=== PATIENT | male | born 1950 | race Caucasian/White ===

== ENCOUNTER → 2018-09-28 09:25 | Outpatient (CLI) | payer MEDICARE, OTHER | END | disposition home or self-care (01) | LOC: D.RAD 09:25 | PROVIDERS: ATTEND Family Medicine | DX: R05 Cough (principal) ==

== ENCOUNTER → 2019-07-12 08:08 | Outpatient (CLI) | payer MEDICARE, OTHER ==
--- NOTE | 2019-07-14 14:04 | ST ---
PATIENT:HARDY CAMACHO MEDICAL RECORD: [id number] SEX: M LOCATION:[facility] ORDER #: ADMISSION DATE: 07/12/19 AGE OF PATIENT: 69 REFERRING PHYSICIAN: INTERPRETING PHYSICIAN: WILMA NIETO MD DATE OF SERVICE: 07/12/2019 PROCEDURE: Nuclear stress test. INDICATION: Angina, coronary artery disease, shortness of breath, hypertension, and hyperlipidemia. He was exercised on standard Deep protocol for 5 minutes achieving 85% max target heart rate response with 33 mCi of sestamibi injected at peak stress, 11 mCi used previously for rest images. FINDINGS: Gated SPECT reveals preserved ejection fraction at 64% with good wall motion and thickening and brightening throughout the lateral segment. SPECT imaging Cardiology was used as myocardial perfusion agent. There is reversibility inferiorly as well as laterally. The inferior perfusion defect is at the basal, mid, apical, inferior segments. The degree of reversibility is moderate. The amount of myocardium involved is moderate lateral perfusion defect is basal, mid, apical, lateral segments. The degree of reversibility is mild. The amount of myocardium involved is moderate. OVERALL IMPRESSION: This is an intermediate risk abnormal nuclear stress test. Reversible ischemia inferiorly and laterally, possibly suggestive of multivessel coronary artery disease. TRANSINT:[id number] Voice Confirmation ID: [id number] DOCUMENT ID: [id number] WILMA NIETO MD at 1404 CC: GERALDINE BEATTY MD [id number] DICTATION DATE: 07/13/19 1642 ECONOMIC DEVELOPMENT SPECIALIST: 07/14/19 0844 DEP CLI 07/12/19 [id number] [place] [address]
== END | disposition home or self-care (01) ==
LOC: D.HCCARDIO 08:08
PROVIDERS: ATTEND Internal Medicine Interventional Cardiology
DX: I25.10 Atherosclerotic heart disease of native coronary artery without angina pectoris (principal)

== ENCOUNTER 2019-07-26 07:45 | Outpatient (CLI) | payer MEDICARE, OTHER ==
[~2019-07-26] VITALS: Ht 185.4 cm; Wt 77.3 kg
--- NOTE | ~2019-07-26 | HEMODYNAMI ---
PATIENT:HARDY CAMACHO MEDICAL RECORD: [id number] : 52 LOCATION:[facility] ADMISSION DATE: 07/26/19 Generatedon:07/26/20199:08 Patient name: HARDY CAMACHO Patient #: [id number] SSN: [id number] : 1950 Date of study: 07/26/2019 Page: Of Hemodynamic Procedure Report Patient Data Patient Demographics Procedure consent was obtained First Name: HARDY Gender: Male Last Name: DOUG : 1950 [facility] Initial: J Age: 69 year(s) Patient #: [id number] Race: Unknown SSN: [id number] Additional ID: [id number] Contact details Address: [address] State: [place] City: [place] Zip code: [address] Past Medical History Allergies: No known allergies Admission Admission Data Admission Date: 07/26/2019 Admission Time: 7:45 Arrival Date: 07/26/2019 Arrival Time: 0:00 Admit Source: Other Insurance Payor: Medicaid [facility] #: [id number] Height (in.): 73.23 BSA: 2.01 (m2) Height (cm.): 186 BMI: 22.26 (kg/m2) Weight (lbs.): 169.76 Weight (kg.): 77 Lab Results Lab Result Date: 07/26/2019 Lab Result Time: 0:00 Biochemistry Name Units Result Min Max BUN mg/dl 16 --(---*)-- 7 18 Creatinine mg/dl 0.9 --(-*--)-- 0.6 1.3 eGFR ml/min 88.92363 -*(----)-- 90 120 NONAFRICAN CBC Name Units Result Min Max Hematocrit % 48.5 --(--*-)-- 42 54 Hemoglobin g/dl 16.2 --(--*-)-- 13.5 17.5 Procedure Procedure Types Cath Procedure Diagnostic Procedure [facility] w/Coronaries Sedation Charges Moderate Sedation up to 15 minutes PCI Procedure Coronary Stent Coronary Stent Initial Hemochron ACT Test Procedure Description Procedure Date Procedure Date: 07/26/2019 Procedure Start Time: 8:46 Procedure End Time: 9:07 Procedure Staff Name Function Morgan Martin MD Performing Physician Marion Aldridge RT Monitor Suman Lawson RN Nurse Sho Hough RT Scrub Procedure Data Cath Procedure Fluoroscopy Diagnostic fluoroscopy Total fluoroscopy Time: 5.2 time: 5.2 min min Diagnostic fluoroscopy Total fluoroscopy dose: 558 dose: 558 mGy mGy Contrast Material Contrast Material Type Amount (ml) Isovue 300 86 Entry Location Entry Primary Successful Side Size Upsize Upsize Entry Closure Perea ccessful Closure Location (Fr) 1 (Fr) 2 (Fr) Remarks Device Remarks Radial Right 6 Fr Mechanical artery Short Compression Estimated blood loss: 10 ml Diagnostic catheters Device Type Used For End Catheter Placement DIAGNOSTIC [place] 110cm 5 Procedure Fr catheter ([id number]) Procedure Complications No complications Procedure Medications Medication Administration Route Dosage 0.9% NaCl I.V. 100 ml/hr Oxygen etCO2 Nasal cannula 2 l/min Heparin Flush Bag added to field 2 bags (1000units/500ml NS) Lidocaine 2% added to field 20 Radial Cocktail added to field 1 syringe (Verapamil 2mg/Nitro 400mcg/Heparin 1500units) Radial Cocktail I.A. 1 syringe (Verapamil 2mg/Nitro 400mcg/Heparin 1500units) Versed I.V. 2 mg Fentanyl I.V. 100 mcg Heparin Bolus I.V. 4000 units Integrilin (Bolus I.V. 6.8 ml 2mg/ml) Integrilin (Bolus wasted 3.2 ml 2mg/ml) Plavix P.O. 600 mg Hemodynamics Rest BSA: 2.01 (m2) HGB: 16.2 (g/dl) O2 Consumption: Estimated: 217.5 (ml/min) O2 Con sumption indexed: Estimated:108.21 (ml/min/m) Heart Rate: 49 (bpm) Snapshots Pre Cath Intra NCS Post Cath Vital Signs Time Heart Resp SPO2 etCO2 NIBP (mmHg) Rhythm Pain Sedation Rate (ipm) (%) (mmHg) Status Level (bpm) 8:39:38 50 17 98 0 140/95(107) NSR 0 (11) 10(A) , No pain 8:43:48 61 14 96 38.9 143/88(99) NSR 0 (11) 10(A) , No pain 8:48:01 64 16 94 42.8 145/78(133) NSR 0 (11) 10(A) , No pain 8:52:13 72 22 94 40.5 124/82(97) NSR 0 (11) 9(A) , No pain 8:56:17 72 13 96 38.2 130/85(104) NSR 0 (11) 9(A) , No pain 9:00:27 65 24 97 36.6 128/73(107) NSR 0 (11) 10(A) , No pain 9:04:35 65 21 97 37.4 132/82(100) NSR 0 (11) 10(A) , No pain Medications Time Medication Route Dose Verified Delivered Reason Note s Effectiveness by by 8:41:52 0.9% NaCl I.V. 100 Suman Suman Per physician ml/hr Renny Lawson RN RN 8:42:01 Oxygen etCO2 2 l/min Suman Suman for low 02 sats Nasal Lorigan Renny cannula RN RN 8:42:11 Heparin Flush added 2 bags Suman Suman used for Bag to Lorlin Lawson procedure (1000units/500ml [facility] RN RN NS) 8:42:21 Lidocaine 2% added 20ml Suman Suman for local to vial Lorigan Lorigan anesthetic [facility] RN RN 8:43:49 Radial Cocktail added 1 Suman Suman used for (Verapamil to syringe Lorigan Lorigan procedure 2mg/Nitro field RN RN 400mcg/Heparin 1500units) 8:48:54 Radial Cocktail I.A. 1 Suman Morgan for (Verapamil syringe Renny Martin MD vasodilation 2mg/Nitro RN 400mcg/Heparin 1500units) 8:49:04 Versed I.V. 2 mg Suman Suman for sedation Renny Lawson RN RN 8:49:12 Fentanyl I.V. 100 mcg Suman Suman for sedation Renny Lawson RN RN 8:54:49 Heparin Bolus I.V. 4000 Suman Suman for units Lorigan Lorlin anticoagulation RN RN 8:55:06 Integrilin I.V. 6.8 ml Suman Suman for (Bolus 2mg/ml) Lorigan Lorigan antiplatelet RN RN therapy 8:55:16 Integrilin wasted 3.2 ml Suman Will to sharp's (Bolus 2mg/ml) Renny Lawson RN RN 9:01:08 Plavix P.O. 600 mg Suman Will for Renny Lawson antiplatelet RN RN therapy Procedure Log Time Note 8:26:43 Procedure Status Elective Heart Cath (OP). 8:26:46 Suman Lawson RN sent for patient. Start room use. 8:27:00 Time tracking: Regular hours (M-F 7:00 - 5:00) 8:27:07 Plan of Care:Hemodynamics will remain stable., Cardiac rhythm will remain stable., Comfort level will be maintained., Respiratory function will remain adequate., Patient/ family verbilizes understanding of procedure., Procedure tolerated without complication., Recovers from procedure without complications.. 8:28:34 Arrival Date: 07/26/2019 12:00:00 AM 8:28:56 Insurance Payor : Medicaid 8:29:04 Admit Source: Other 8:29:25 Patient Height : 73.23 inches 8:29:30 Patient Weight : 169.76 lbs 8:31:00 Patient received from Pre/Post Procedure Room to CCL 1 Alert and oriented. Tansferred to table in Supine position. 8:31:04 Signed procedure consent form obtained from patient. 8:31:06 Warm blankets applied, and jacy hugger turned on for patient comfort. 8:31:07 Correct patient and procedure confirmed by team. 8:31:09 ECG and BP/O2 sat monitors applied to patient. 8:37:40 Vital chart was started 8:37:41 Baseline sample Acquired. 8:37:43 Rhythm: sinus bradycardia 8:37:45 Full Disclosure recording started 8:39:50 H&P Date Dictated: 07/07/2019 Within 30 days and on chart., H&P Addendum completed by physician on day of procedure. (MUST COMPLETE FOR ALL OUTPATIENTS). 8:39:51 Pre-procedure instructions explained to patient. 8:39:51 Pre-op teaching completed and patient verbalized understanding. 8:39:52 Family in patients room. 8:39:53 Patient NPO since Midnight. 8:39:59 Patient allergic to No known allergies 8:40:01 Is the patient allergic to Iodine/contrast media? No. 8:40:08 Was the patient premedicated? No 8:40:09 Is patient on blood thinner?No 8:40:10 Patient diabetic? Yes. 8:40:11 If diabetic: On Metformin? No 8:40:18 Previous problem with sedation/anesthesia? No ? 8:40:19 Snore? Yes 8:40:20 Sleep apnea? No 8:40:22 Deviated septum? No 8:40:22 Opens mouth fully? Yes 8:40:23 Sticks out tongue? Yes 8:40:24 Airway obstruction? No ? 8:40:26 Dentures? No ? 8:40:28 Pre procedure: right dorsailis pedis pulse 1+ Palpable, but thready & weak; easily obliterated 8:40:33 Modified Leopoldo's test Ulnar < 7 seconds 8:40:35 Patient pain scale 0/10 ?. 8:40:43 IV patent on arrival in left forearm with 0.9% NaCl at O. 8:41:09 Stress Test: yes; abnormal MULTIVESSEL 8:41:52 0.9% NaCl 100 ml/hr I.V. was administered by Suman Lawson RN; Per physician; Verbal order read back and verified. 8:42:01 Oxygen 2 l/min etCO2 Nasal cannula was administered by Suman Lawson RN; for low 02 sats; Verbal order read back and verified. 8:42:11 Heparin Flush Bag (1000units/500ml NS) 2 bags added to field was administered by Suman Lawson RN; used for procedure; Verbal order read back and verified. 8:42:21 Lidocaine 2% 20ml vial added to field was administered by Suman Lawson RN; for local anesthetic; Verbal order read back and verified. 8:43:49 Radial Cocktail (Verapamil 2mg/Nitro 400mcg/Heparin 1500units) 1 syringe added to field was administered by Suman Lawson RN; used for procedure; Verbal order read back and verified. 8:44:40 Lab Result : Creatinine 0.9 mg/dl 8:44:40 Lab Result : BUN 16 mg/dl 8:44:40 Lab Result : eGFR NONAFRICAN 88.46844 ml/min 8:44:40 Lab Result : Hemoglobin 16.2 g/dl 8:44:40 Lab Result : Hematocrit 48.5 % 8:44:45 Right Radial & Right Groin area was prepped with chlora-prep and draped in sterile fashion 8:44:46 Alarms reviewed by R. N. 8:44:46 Sharps counted by scrub and verified by R.N. 8:44:49 --------ALL STOP TIME OUT------ 8:44:50 Final Timeout: patient, procedure, and site verified with staff and physician. All members of the team are in agreement. 8:44:51 Right Radial & Right Groin site verified by team. 8:44:54 Fire Safety Assessment: A--An alcohol-based skin anteseptic being used preoperatively., C--Open oxygen or nitrous oxide is being used., D--An ESU, laser, or fiber-optic light is being used. 8:44:57 Physical assessment completed. ASA score P 2 - A patient with mild systemic disease as per Morgan Martin MD. 8:45:00 2) 60-89 Mildly reduced kidney function, and other findings (as for stage 1) point to kidney disease. 8:45:04 Maximum allowable contrast dose (3.7 X eGFR X 0.75)247 ml. 8:45:06 Sedation plan: IV Moderate Sedation Medication:Versed, Fentanyl 8:45:12 Use device set Radial Dx or PCI 8:45:13 ACIST Syringe (12681) opened to sterile field. 8:45:14 Bag Decanter (2001S) opened to sterile field. 8:45:14 ACIST Hand Control (03422) opened to sterile field. 8:45:15 ACIST Manifold (46009) opened to sterile field. 8:45:15 Tegaderm 4 x 4 (1626W) opened to sterile field. 8:45:16 Medline Cath Pack ([id number]) opened to sterile field. 8:45:17 MBrace Wrist Support (079153650) opened to sterile field. 8:45:18 EMERALD Guide Wire (157-811) opened to sterile field. 8:45:19 SHEATH 6FR RAIN (4913267) opened to sterile field. 8:46:25 Procedure started. 8:46:44 Local anesthetic to right radial artery with Lidocaine 2% by Morgan Martin MD.INITIAL ACCESS ONLY 8:46:55 A 6 Fr Short sheath was inserted into the Right Radial artery 8:47:33 Zero performed for pressure channel P1 8:47:45 Zero performed for pressure channel P1 8:48:25 A DIAGNOSTIC [place] 110cm 5 Fr catheter (381143) was advanced over the wire and used for Procedure. 8:48:54 Radial Cocktail (Verapamil 2mg/Nitro 400mcg/Heparin 1500units) 1 syringe I.A. was administered by Morgan Martin MD; for vasodilation; Verbal order read back and verified. 8:49:04 Versed 2 mg I.V. was administered by Suman Lawson RN; for sedation; Verbal order read back and verified. 8:49:07 LV gram done using KILPATRICK 8:49:10 Injector settings: Ml/sec: 5, Volume: 15, 8:49:12 Fentanyl 100 mcg I.V. was administered by Suman Lawson RN; for sedation; Verbal order read back and verified. 8:49:16 EF : 55 % 8:50:13 LCA angiography performed. 8:50:44 RCA angiography performed. 8:50:45 Catheter exchanged over wire. 8:51:21 ACCDominant side:Right 8:51:24 Proceeding to intervention. 8:51:36 INFLATOR Merit BasixCompak (UG9988) opened to sterile field. 8:51:37 CHOICE PT Extra Support 182cm wire ([id number]) opened to sterile field. 8:51:37 GUIDE 6FR AR 2.0 catheter ([id number]) opened to sterile field. 8:51:46 6 Fr AR 2 guide catheter was inserted over the wire 8:53:24 Pre PCI Site: [place] mRCA has 90% stenosis. 8:53:32 CHOICE ES 182 wire advanced. 8:53:56 Wire advanced across lesion. 8:54:49 Heparin Bolus 4000 units I.V. was administered by Suman Lawson RN; for anticoagulation; Verbal order read back and verified. 8:54:53 Inflate balloon Inflation number: 1 A EUPHORA 3.0 x 15 Balloon ([id number]) was prepped and advanced across the Prox RCA , then inflated to 17 SYED for 0:00 (min:sec) . 8:55:06 Integrilin (Bolus 2mg/ml) 6.8 ml I.V. was administered by Suman Lawson RN; for antiplatelet therapy; Verbal order read back and verified. 8:55:16 Integrilin (Bolus 2mg/ml) 3.2 ml wasted was administered by Suman Lawson RN; to sharp's; Verbal order read back and verified. 8:55:36 Inflation number: 2 The EUPHORA 3.0 x 15 Balloon ([id number]) was reinflated across the Prox RCA , to 13 SYED for 0:00 (min:sec) . 8:56:23 Balloon removed over the wire. 8:57:20 Place stent Inflation Number: 1 A MARICHUY RX 3.0 x 18 stent ([id number]) was prepped and advanced across the Mid RCA . The stent was deployed at 13 SYED for 0:00 (min:sec) . 8:57:26 Stent catheter was removed intact over wire. 8:59:06 Place stent Inflation Number: 3 A MARICHUY RX 3.0 x 18 stent ([id number]) was prepped and advanced across the Prox RCA . The stent was deployed at 13 SYED for 0:00 (min:sec) . 8:59:17 Stent catheter was removed intact over wire. 9:00:26 Wire removed. 9:00:27 Guide catheter removed. 9:00:39 ZEPHYR REGULAR TR BAND (007403) opened to sterile field. 9:01:01 Procedure ended.(Physican Out) 9:01:08 Plavix 600 mg P.O. was administered by Suman Lawson RN; for antiplatelet therapy; Verbal order read back and verified. 9:02:10 Sheath removed intact; hemostasis achieved with Mechanical Compression to the Right Radial artery. 9:02:14 Fluoroscopy time 05.20 minutes. 9::18 Fluoroscopy dose: 558 mGy 9::18 Flurop Dose total: 558 9:02:25 Dose Area Product 92615 mGy/cm. 9:02:28 Contrast amount:Isovue 300 86ml. 9:02:30 Maximum allowable dose exceeded? No. 9:02:31 Sharpsteffany counted by scrub and verified by R.N. 9:02:37 Post-procedure physical assessment completed. ASA score P 2 - A patient with mild systemic disease as per Morgan Martin MD. 9:02:39 Post procedure rhythm: sinus rhythm 9:02:42 Estimated blood loss: 10 ml 9:02:44 Post procedure instruction explained to patient.Patient verbalizes understanding. 9:02:45 Patient needs reinforcement of post procedure teaching. 9:03:16 Procedure type changed to Cath procedure, Diagnostic procedure, LHC, [facility] w/Coronaries, Sedation Charges, Moderate Sedation up to 15 minutes, PCI procedure, Coronary Stent, Coronary Stent Initial, Hemochron ACT Test 9:03:51 Procedure and supply charges have been captured, reviewed, submitted and are correct. 9:03:55 ACT drawn and resulted at 282 seconds. (normal therapeutic range 180-240 seconds). 9:04:18 Procedure Complication : No complications 9:04:40 Vital chart was stopped 9:04:41 [facility] Findings: MVD- PCI performed (see procedure note) 9:04:45 Operative report dictated upon procedure completion. 9:04:46 See physician's report for complete and final results. 9:04:47 Report given to Pre/Post Procedure Room. 9:04:50 Patient transfered to Pre/Post Procedure Room with Bed. 9:04:54 ACC-PCI Only Patient was given prescriptions, or instructed by Morgan Martin MD to start/continue the following medications upon discharge: Plavix 9:05:57 [place] band inflated with 10cc of air. 9:07:25 Procedure ended. 9:07:25 Full Disclosure recording stopped 9:07:27 End room use (Document Last) 9:07:37 End room use (Document Last) 9:07:53 End room use (Document Last) Intervention Summary Intervention Notes Time ActionType Lesion and Equipment Used Action# Pressure Duration Attributes 8:54:53 Inflate Prox RCA EUPHORA 3.0 x 1 17 00:00 balloon 15 Balloon ([id number]) 8:55:36 Reinflate Prox RCA EUPHORA 3.0 x 2 13 00:00 balloon 15 Balloon ([id number]) 8:57:20 Place stent Mid RCA MARICHUY RX 3.0 x 1 13 00:00 18 stent ([id number]) 8:59:06 Place stent Prox RCA MARICHUY RX 3.0 x 3 13 00:00 18 stent ([id number]) Device Usage Item Name Manufacture Quantity Catalog Number Hospital Part Current M inimal Lot# / Charge Number Stock Stock Serial# Code ACIST Syringe Acist 1 76037 203129 818135 776853 2 0 (19590) Medical Systems Inc Bag Decanter Microtek 1 2001S 257235 75505 543526 5 (2001S) Medical Inc. ACIST Hand Acist 1 54413 265853 039880 686084 5 Control Medical (14777) Systems Inc ACIST Manifold Acist 1 99090 038634 387502 434172 5 (54342) Medical Systems Inc Tegaderm 4 x 4 3M 1 1626W 996160 402122 029725 5 (1626W) Medline Cath Medline 1 [id number] 120234 67208 610142 5 Pack ([id number]) MBrace Wrist Advanced 1 140-2960-00 105571 00774 519011 5 Support Vascular (029537073) Dynamics EMERALD Guide Cardinal 1 502-455 970127 181693 307933 5 Wire (502455) Health SHEATH 6FR Cardinal 1 3390578 779598 5831843 065450 5 RAIN (0021069) Health DIAGNOSTIC Terumo 1 40-5153 823334 258680 923086 5 [place] 110cm 5 Fr catheter (683945) INFLATOR Merit Merit 1 GN2788 291755 776404 135592 1 5 LogMeIn (SM8207) CHOICE PT [place]ary 1 [id number] 528302 961859 296912 5 Extra Support Scientific 182cm wire (4809552P6) GUIDE 6FR AR Medtronic 1 OK0AY92 395465 79986 776439 1 2.0 catheter (JG5CS46) EUPHORA 3.0 x Medtronic 1 [id number] 649052 701236 698186 5 [id number] 15 Balloon (AJJ6675Y) MARICHUY RX 3.0 x Medtronic 2 [id number] 496721 4791842 431593 5 [id number] 18 stent [id number] ([id number]) ZEPHYR REGULAR Cardinal 1 664969 683895 6712737 498150 5 [employer] (005587) Signature Audit [place] Stage Time Signature Unsigned Intra-Procedure 07/26/2019 Marion Oly 9:07:37 AM RT(R) Intra-Procedure 07/26/2019 Suman 9:07:53 AM Renny HAMMER Intra-Procedure 07/26/2019 Morgan Martin 9:08:06 AM [id number] [place] [address]
--- NOTE | ~2019-07-26 | OP ---
PATIENT NAME: HARDY CAMACHO MEDICAL RECORD: [id number] :52 LOCATION:D.CAT ADMISSION DATE: SURGEON: WILMA NIETO MD DATE OF OPERATION: 07/26/2019 PROCEDURES: 1. PTCA stent RCA. 2. Left heart catheterization. 3. Selective coronary angiography. 4. Left ventriculogram. INDICATION: Angina and coronary artery disease. DESCRIPTION OF PROCEDURE: After informed consent was obtained and after a detailed description of the risks, benefits as well as alternative therapies, the patient elected to proceed with angiogram and angioplasty. The right radial area was prepped and draped in normal sterile fashion. Right radial artery was cannulated via modified Seldinger technique with placement of 6-K[place] sheath. All catheters exchanged through this sheath. FINDINGS: Left ventriculogram was performed in standard 30-degree KILPATRICK view reveals good cardiac wall motion and ejection fraction estimated at 55% to 60%. SELECTIVE CORONARY ANGIOGRAPHY: 1. Left main is with no significant angiographic disease. 2. Left anterior descending has 95% stenosis of the LAD as well as the LAD diagonal. 3. Left circumflex has 90% to 95% stenosis in the mid vessel. 4. Right coronary has a very hazy 80% stenosis followed by a 90% stenosis. PTCA STENT OF THE RCA: The stents used were 3.0 x 18 mm [place] times 2. The result was 0% residual stenosis. OVERALL IMPRESSION: Successful percutaneous transluminal coronary angioplasty stent of the right coronary artery going from 90% initial stenosis to 0% residual. PLAN: PTCA stent of the left anterior descending, diagonal, and circumflex in the near future. TRANSINT:[id number] Voice Confirmation ID: [id number] DOCUMENT ID: [id number] WILMA NIETO MD CC: [id number] DICTATION DATE: 07/26/19 0904 EVENTS TRAFFIC CONTROLLER: 07/26/19 1151 [address] [facility] [address] [place] [address]
[2019-07-26] MEDS ORDERED: OMEPRAZOLE20 M1 PO (07:56)
[2019-07-26] MEDS ORDERED: LISINOPRIL20 MG PO (07:56)
[2019-07-26] MEDS ORDERED: ZOCOR20 MG PO (07:57)
[2019-07-26] MEDS ORDERED: JANUVIA100 MG PO (07:57)
[2019-07-26 08:06] VITALS: BP 131/80; Ht 185.4 cm; Wt 77.3 kg
[2019-07-26 08:23] LABS: BASOPHILS 0.3 % (0-2); EOSINOPHILS 2.6 % (0-7); HEMATOCRIT 48.5 % (42.0-54.0); HEMOGLOBIN 16.2 g/dL (13.5-17.5); IMMATURE GRANULOCYTES 0.3 % (0-5); LYMPHOCYTES 16.9 % (15-50); MCH 31.9 pg (26.0-34.0); MCHC 33.4 g/dL (31.0-37.0); MCV 95.5 fL (80.0-100.0); MEAN PLATELET VOLUME 10.6 fL (7.4-10.4); MONOCYTES 9.2 % (2-11); NEUTROPHILS 70.7 % (40-80); PLATELET COUNT 189 10x3/uL (130-400); RBC 5.08 10x6/uL (4.20-6.10); RDW 14.1 % (11.5-14.5); WBC 6.1 10x3/uL (4.8-10.8)
[2019-07-26 08:33] LABS: ALT (SGPT) 27 U/L (10-68); CALC OSMOLALITY 288 mosm/kg (275-300); CALCIUM 9.1 mg/dL (8.5-10.1); CARBON DIOXIDE 27.7 mmol/L (21.0-32.0); CHLORIDE - SERUM 107 mmol/L (98-107); CHOL - HDL RATIO 3.1 ratio (2.3-4.9); CHOLESTEROL, TOTAL 139 mg/dL (0-200); CREATININE - SERUM 0.9 mg/dL (0.6-1.3); GLUCOSE 155 mg/dL (74-106); HDL CHOLESTEROL 45 mg/dL (32-96); LDL CHOLESTEROL 82 mg/dL (0-100); LDL-HDL RATIO 1.8 ratio (1.5-3.5); POTASSIUM - SERUM 4.7 mmol/L (3.5-5.1); SODIUM 143 mmol/L (136-145); TRIGLYCERIDE 60 mg/dL (30-200); UREA NITROGEN 16 mg/dL (7-18); eGFR NON AFRICAN AMERICAN 89 mL/min (90-120)
--- NOTE | 2019-07-26 09:15 | NUR ---
REC'D TO ROOM 12 FROM VIOLIN TUTOR VIA STRETCHER. PT AWAKE, ANSWERS QUESTIONS APPROP. DENIES PAIN. MONITORS ESTAB AND ALARMS ON. Z BAND TO R WRIST C/D/I. AT BS. C/L IN REACH.
--- NOTE | 2019-07-26 09:30 | NUR ---
R ARM/HAND WARM, PALP PULSES, CAP REFILL BRISK, NO S/S OF BLEEDING OR HEMATOMA.
--- NOTE | 2019-07-26 10:00 | NUR ---
PT RESTING QUIETLY, VSS. R ARM/HAND WARM, Z BAND C/D/I, NO S/S BLEEDING OR HEMATOMA.
[2019-07-26] MEDS ORDERED: BAYER CHEWABLE81 MG PO (10:17)
[2019-07-26] MEDS ORDERED: PLAVIX75 MG PO (10:17)
--- NOTE | 2019-07-26 10:30 | NUR ---
PT AWAKENS EASILY, DENIES NEEDS. R Z BAND SITE C/D/I, NO S/S OF BLEEDING OR HEMATOMA. AT BS.
--- NOTE | 2019-07-26 10:59 | NUR ---
R WRIST SITE C/D/I, NO S/S OF BLEEDING OR HEMATOMA. PT DENIES NEEDS. AT BS.
--- NOTE | 2019-07-26 11:30 | NUR ---
HOB ELEVATED, PT TAKING SIPS, DENIES NAUSEA. R WRIST Z BAND C/D/I, NO S/S OF BLEEDING OR HEMATOMA. REMAINS AT BS.
--- NOTE | 2019-07-26 12:00 | NUR ---
DR. NIETO IN TO SEE PT. R SARAN SITE WNL.
--- NOTE | 2019-07-26 12:16 | NUR ---
PT SITTING UP IN BED. 2CC AIR REMOVED FROM Z BAND. PT INSTRUCTED ON S/S TO REPORT.
--- NOTE | 2019-07-26 12:32 | NUR ---
ANOTHER 2 CC AIR REMOVED FROM Z BAND, NO S/S OF BLEEDING OR HEMATOMA.
--- NOTE | 2019-07-26 12:42 | NUR ---
2 CC AIR REMOVED, SITE WITH OOZING NOTED, 1CC REPLACED WITH NO ADDITIONAL SIGNS OF BLEEDING - WILL CONT CLOSE MONITORING.
--- NOTE | 2019-07-26 12:55 | NUR ---
NO SIGN OF BLEEDING, 2 MORE CC AIR REMOVED.
--- NOTE | 2019-07-26 13:18 | NUR ---
L PIV D/C'D INTACT, DSG APPLIED. PT ALLOWED TO GET UP TO GET DRESSED, INSTRUCTED NOT TO USE R ARM - AT BS TO ASSIST.
--- NOTE | 2019-07-26 13:22 | NUR ---
Z BAND REMOVED, NO BLEEDING OR SWELLING NOTED. 2X2 AND TEGADERM DSG APPLIED. R WRIST IMMOBILIZER IN PLACE. DISCHARGE INSTRUCTIONS AND TEACHING DONE.
--- NOTE | 2019-07-26 13:35 | NUR ---
PT TO BR INDEPENDENTLY.
--- NOTE | 2019-07-26 13:40 | NUR ---
PT D/C'D VIA W/C WITH D/C PAPERS AND BELONGINGS. NO S/S OF DISTRESS. WRIST DSG C/D/I.
== END 2019-07-26 13:40 | disposition home or self-care (01) ==
LOC: D.CATH 07:45
PROVIDERS: ATTEND Internal Medicine Interventional Cardiology
DX: I25.119 Atherosclerotic heart disease of native coronary artery with unspecified angina pectoris (principal); R06.09 Other forms of dyspnea; I10 Essential (primary) hypertension; E78.5 Hyperlipidemia, unspecified
CPT/HCPCS: 93458; C9600

== ENCOUNTER 2019-07-29 07:28 | Outpatient (CLI) | payer MEDICARE, OTHER ==
[~2019-07-29] VITALS: Ht 185.4 cm; Wt 77.3 kg
--- NOTE | ~2019-07-29 | HEMODYNAMI ---
PATIENT:HARDY CAMACHO MEDICAL RECORD: [id number] : 52 LOCATION:[facility] ADMISSION DATE: 07/29/19 Generatedon:07/29/201910:06 Patient name: HARDY CAMACHO Patient #: [id number] SSN: [id number] : 1950 Date of study: 07/29/2019 Page: Of Hemodynamic Procedure Report Patient Data Patient Demographics Procedure consent was obtained First Name: HARDY Gender: Male Last Name: DOUG : 1950 [facility] Initial: J Age: 69 year(s) Patient #: [id number] Race: Unknown SSN: [id number] Additional ID: [id number] Contact details Address: [address] State: [place] City: [place] Zip code: [address] Past Medical History History of disease Date Diagnosis Comments CAD Allergies: No known allergies Admission Admission Data Admission Date: 07/29/2019 Admission Time: 7:28 Arrival Date: 07/29/2019 Arrival Time: 0:00 Height (in.): 72.83 BSA: 2 (m2) Height (cm.): 185 BMI: 22.5 (kg/m2) Weight (lbs.): 169.76 Weight (kg.): 77 Lab Results Lab Result Date: 07/29/2019 Lab Result Time: 0:00 Biochemistry Name Units Result Min Max BUN mg/dl 15 --(--*-)-- 7 18 Creatinine mg/dl 0.9 --(-*--)-- 0.6 1.3 eGFR ml/min 88.78621 -*(----)-- 90 120 NONAFRICAN CBC Name Units Result Min Max Hematocrit % 47 --(-*--)-- 42 54 Hemoglobin g/dl 15.9 --(--*-)-- 13.5 17.5 Procedure Procedure Types Cath Procedure Diagnostic Procedure Sedation Charges Moderate Sedation up to 30 minutes PCI Procedure Coronary Stent Coronary Stent Initial x2 Coronary Stent Additional Hemochron ACT Test Procedure Description Procedure Date Procedure Date: 07/29/2019 Procedure Start Time: 9:39 Procedure End Time: 10:02 Procedure Staff Name Function Morgan Martin MD Performing Physician Marion Aldridge RT Monitor Sho Hough RT Scrub Suman Lawson RN Nurse Additional PCI Information PCI indication: Staged PCI Procedure Data Cath Procedure Fluoroscopy Diagnostic fluoroscopy Total fluoroscopy Time: 0 time: 0 min min Diagnostic fluoroscopy Total fluoroscopy dose: 985 dose: 985 mGy mGy Contrast Material Contrast Material Type Amount (ml) Isovue 300 128 Entry Location Entry Primary Successful Side Size Upsize Upsize Entry Closure Succes sful Closure Location (Fr) 1 (Fr) 2 (Fr) Remarks Device Remarks Femoral Right 6 Fr Exoseal artery Short Estimated blood loss: 10 ml Procedure Complications No complications Procedure Medications Medication Administration Route Dosage 0.9% NaCl I.V. 100 ml/hr Oxygen etCO2 Nasal cannula 2 l/min Heparin Flush Bag added to field 2 bags (1000units/500ml NS) Lidocaine 2% added to field 20 Versed I.V. 2 mg Fentanyl I.V. 100 mcg Heparin Bolus I.V. 4000 units Versed I.V. 1 mg Hemodynamics Rest BSA: 2 (m2) HGB: 15.9 (g/dl) O2 Consumption: Estimated: 217.45 (ml/min) O2 Consu mption indexed: Estimated:108.72 (ml/min/m) Heart Rate: 51 (bpm) Snapshots Pre Cath Intra NCS Post Cath Vital Signs Time Heart Resp SPO2 etCO2 NIBP (mmHg) Rhythm Pain Sedation Rate (ipm) (%) (mmHg) Status Level (bpm) 9:26:03 51 16 99 27.7 165/101(135) NSR 0 (11) 10(A) , No pain 9:30:19 55 26 97 36.7 136/86(111) NSR 0 (11) 10(A) , No pain 9:34:31 55 19 95 39.7 133/84(102) NSR 0 (11) 10(A) , No pain 9:38:43 58 19 96 38.9 130/83(102) NSR 0 (11) 10(A) , No pain 9:42:49 69 16 90 38.2 150/101(119) NSR 0 (11) 10(A) , No pain 9:47:01 80 11 97 39.7 146/96(125) NSR 0 (11) 9(A) , No pain 9:51:15 77 18 98 38.9 163/90(128) NSR 0 (11) 9(A) , No pain 9:55:35 78 18 99 36 154/99(115) NSR 0 (11) 10(A) , No pain 9:59:49 77 12 99 40.5 172/103(138) NSR 0 (11) 9(A) , No pain Medications Time Medication Route Dose Verified Delivered Reason Notes Effectiveness by by 9:30:08 0.9% NaCl I.V. 100 Suman Suman Per physician ml/hr Renny Lawson RN RN 9:30:17 Oxygen etCO2 2 Suman Suman for low 02 sats Nasal l/min Renny Lawson cannula RN RN 9:30:27 Heparin Flush added 2 Suman Suman used for Bag to bags Renny Lawson procedure (1000units/500ml field RN RN NS) 9:30:39 Lidocaine 2% added 20ml Suman Suman for local to vial Renny Lawson anesthetic field RN RN 9:38:58 Versed I.V. 2 mg Suman Suman for sedation Renny Lawson RN RN 9:39:07 Fentanyl I.V. 100 Suman Suman for sedation mcg Renny Lawson RN RN 9:40:28 Heparin Bolus I.V. 4000 Suman Suman for units Renny Lawson anticoagulation RN RN 9:56:09 Versed I.V. 1 mg Suman Suman for sedation Renny Lawson RN media promoter Log Time Note 9:01:19 Informed consent obtained and on chart 9:02:51 Procedure Status Elective Heart Cath (OP). 9:03:15 Time tracking: Regular hours (M-F 7:00 - 5:00) 9:03:20 Plan of Care:Hemodynamics will remain stable., Cardiac rhythm will remain stable., Comfort level will be maintained., Respiratory function will remain adequate., Patient/ family verbilizes understanding of procedure., Procedure tolerated without complication., Recovers from procedure without complications.. 9:04:10 H&P Date Dictated: 07/07/2019 Within 30 days and on chart., H&P Addendum completed by physician on day of procedure. (MUST COMPLETE FOR ALL OUTPATIENTS). 9:05:28 Patient allergic to No known allergies 9:06:14 Lab Result : BUN 15 mg/dl 9::14 Lab Result : eGFR NONAFRICAN 88.32248 ml/min 9:06:14 Lab Result : Creatinine 0.9 mg/dl 9:06:14 Lab Result : Hemoglobin 15.9 g/dl 9:06:14 Lab Result : Hematocrit 47 % 9:06:23 Stress Test: no; N/A BRING BACK PCI 9:06:37 Patient Weight : 169.76 lbs 9:06:40 Patient Height : 72.83 inches 9:06:43 Arrival Date: 07/29/2019 12:00:00 AM 9:07:32 PCI Indication : Staged PCI 9:09:23 Risk of Mortality: .1 9:09:26 Risk of blood transfusion: .2 9:09:29 Risk of RAJESH: .7 9:10:51 Suman Lawson RN sent for patient. Start room use. 9:19:40 Patient received from Pre/Post Procedure Room to CCL 1 Alert and oriented. Tansferred to table in Supine position. 9:19:41 Warm blankets applied, and jacy hugger turned on for patient comfort. 9:19:42 Correct patient and procedure confirmed by team. 9:19:42 ECG and BP/O2 sat monitors applied to patient. 9:24:51 Vital chart was started 9:24:52 Baseline sample Acquired. 9:24:56 Rhythm: sinus bradycardia 9:24:58 Full Disclosure recording started 9:24:59 Pre-procedure instructions explained to patient. 9:24:59 Pre-op teaching completed and patient verbalized understanding. 9:25:01 Family in patients room. 9:25:02 Patient NPO since Midnight. 9:25:04 Is the patient allergic to Iodine/contrast media? No. 9:25:06 Is patient on blood thinner?Yes 9:25:10 ACC The patient was administered the following blood thiners within the last 24 hours: ACCPlavix 9:27:52 Patient diabetic? Yes. 9:27:55 If diabetic: On Metformin? No 9:27:57 Previous problem with sedation/anesthesia? No ? 9:27:58 Snore? Yes 9:28:00 Sleep apnea? No 9:28:02 Deviated septum? No 9:28:03 Opens mouth fully? Yes 9:28:03 Sticks out tongue? Yes 9:28:05 Airway obstruction? No ? 9:28:25 Dentures? No ? 9:28:28 Pre procedure: right dorsailis pedis pulse 1+ Palpable, but thready & weak; easily obliterated 9:28:32 Patient pain scale 0/10 ?. 9:28:37 IV patent on arrival in left forearm with 0.9% NaCl at [facility]. 9:28:39 Lab results completed and on chart. 9:28:42 Right groin area was prepped with chlora-prep and draped in sterile fashion 9:28:43 Alarms reviewed by R. N. 9:28:43 Sharps counted by scrub and verified by R.N. 9:28:56 Use device set CATH PACK 9:28:57 ACIST Syringe (41661) opened to sterile field. 9:28:57 ACIST Hand Control (47624) opened to sterile field. 9:28:57 ACIST Manifold (66586) opened to sterile field. 9:28:58 Medline Cath Pack ([id number]) opened to sterile field. 9:28:58 Bag Decanter (2002S) opened to sterile field. 9:28:59 EMERALD Guide Wire (188-599) opened to sterile field. 9:30:08 0.9% NaCl 100 ml/hr I.V. was administered by Suman Lawson RN; Per physician; Verbal order read back and verified. 9:30:10 SHEATH 6FR Adams (LYZ364) opened to sterile field. 9:30:10 CHOICE PT Extra Support 182cm wire ([id number]) opened to sterile field. 9:30:11 INFLATOR Merit BasixCompak (CJ2148) opened to sterile field. 9:30:17 Oxygen 2 l/min etCO2 Nasal cannula was administered by Suman Lawson RN; for low 02 sats; Verbal order read back and verified. 9:30:27 Heparin Flush Bag (1000units/500ml NS) 2 bags added to field was administered by Suman Lawson RN; used for procedure; Verbal order read back and verified. 9:30:39 Lidocaine 2% 20ml vial added to field was administered by Suman Lawson RN; for local anesthetic; Verbal order read back and verified. 9:35:35 --------ALL STOP TIME OUT------ 9:35:36 Final Timeout: patient, procedure, and site verified with staff and physician. All members of the team are in agreement. 9:35:37 Right groin site verified by team. 9:35:40 Fire Safety Assessment: A--An alcohol-based skin anteseptic being used preoperatively., C--Open oxygen or nitrous oxide is being used., D--An ESU, laser, or fiber-optic light is being used. 9:35:43 Physical assessment completed. ASA score P 2 - A patient with mild systemic disease as per Morgan Martin MD. 9:35:47 2) 60-89 Mildly reduced kidney function, and other findings (as for stage 1) point to kidney disease. 9:35:50 Maximum allowable contrast dose (3.7 X eGFR X 0.75)247 ml. 9:35:53 Sedation plan: IV Moderate Sedation Medication:Versed, Fentanyl 9:37:12 Zero performed for pressure channel P1 9:38:52 Procedure started. 9:38:58 Versed 2 mg I.V. was administered by Suman Lawson RN; for sedation; Verbal order read back and verified. 9:39:07 Fentanyl 100 mcg I.V. was administered by Suman Lawson RN; for sedation; Verbal order read back and verified. 9:39:37 Local anesthetic to right femoral artery with Lidocaine 2% by Morgan Martin MD.INITIAL ACCESS ONLY 9:39:38 A 6 Fr Short sheath was inserted into the Right Femoral artery 9:39:56 GUIDE 6FR XBLAD 4.0 catheter ([id number]) opened to sterile field. 9:40:28 Heparin Bolus 4000 units I.V. was administered by Suman Lawson RN; for anticoagulation; Verbal order read back and verified. 9:41:08 Pre PCI Site: Ione mCirc has 90% stenosis. 9:41:12 6 Fr XBLAD 4 guide catheter was inserted over the wire 9:41:18 CHOICE ES 182 wire advanced. 9:41:47 Wire advanced across lesion. 9:42:34 Place stent Inflation Number: 1 A MARICHUY RX 3.0 x 15 stent ([id number]) was prepped and advanced across the Mid CX . The stent was deployed at 13 SYED for 0:00 (min:sec) . 9:42:52 Inflation number: 2 The stent balloon was then re-inflated across the Mid CX to 13 SYED for 0:00 (min:sec) . 9:43:21 Stent catheter was removed intact over wire. 9:44:57 Place stent Inflation Number: 3 A MARICHUY RX 3.0 x 30 stent ([id number]) was prepped and advanced across the Mid CX . The stent was deployed at 15 SYED for 0:00 (min:sec) . 9:45:16 Stent catheter was removed intact over wire. 9:45:35 Wire redirected to DIAG. 9:45:44 Pre PCI Site: Ione Diag1 has 95% stenosis. 9:47:41 The MARICHUY RX 2.5 x 22 stent ([id number]) was advanced then removed because of failure to cross lesion 9:49:03 Inflate balloon Inflation number: 1 A EUPHORA 2.5 x 20 Balloon ([id number]) was prepped and advanced across the 1st Diag , then inflated to 13 SYED for 0:00 (min:sec) . 9:50:04 Inflation number: 2 The EUPHORA 2.5 x 20 Balloon ([id number]) was reinflated across the 1st Diag , to 13 SYED for 0:00 (min:sec) . 9:50:07 Balloon removed over the wire. 9:51:19 Place stent Inflation Number: 3 A MARICHUY RX 2.5 x 22 stent ([id number]) was prepped and advanced across the 1st Diag . The stent was deployed at 13 SYED for 0:00 (min:sec) . 9:51:26 Stent catheter was removed intact over wire. 9:51:54 Wire removed. 9:52:02 Pre PCI Site: Ione mLAD has 95% stenosis. 9:52:14 WIRE DAMAGED. NEED NEW WIRE. 9:52:20 CHOICE PT Extra Support 182cm wire ([id number]) opened to sterile field. 9:52:33 CHOICE ES 182 wire advanced. 9:52:43 WIRE ADVANCED ACROSS LAD 9:54:12 The MARICHUY RX 3.0 x 15 stent ([id number]) was advanced then removed because of failure to cross lesion 9:55:16 Inflation number: 1 The EUPHORA 2.5 x 20 Balloon ([id number]) was reinflated across the Mid LAD1 , to 17 SYED for 0:00 (min:sec) . 9:55:27 Balloon removed over the wire. 9:56:09 Versed 1 mg I.V. was administered by Suman Lawson RN; for sedation; Verbal order read back and verified. 9:56:43 Place stent Inflation Number: 1 A MARICHUY RX 3.0 x 15 stent ([id number]) was prepped and advanced across the Mid LAD . The stent was deployed at 15 SYED for 0:00 (min:sec) . 9:57:13 Stent catheter was removed intact over wire. 9:57:53 Wire removed. 9:57:53 Guide catheter removed. 9:57:59 EXOSEAL 6Fr (EX600) opened to sterile field. 9:59:42 Sheath removed intact; hemostasis achieved with Exoseal to the Right Femoral artery. 9:59:49 Procedure ended.(Physican Out) 10:00:06 ACT drawn and resulted at OUT OF RANGE seconds. (normal therapeutic range 180-240 seconds). 10:00:27 Fluoroscopy time 00.00 minutes. 10:00:31 Flurop Dose total: 985 10:00:31 Fluoroscopy dose: 985 mGy 10:00:37 Dose Area Product 00333 mGy/cm. 10:00:40 Contrast amount:Isovue 300 128ml. 10:00:42 Maximum allowable dose exceeded? No. 10:00:43 Sharps counted by scrub and verified by R.N. 10:00:46 Post-op/insertion site Right Femoral artery dressed using a 4 x 4 and Tegaderm. 10:00:48 Post-procedure physical assessment completed. ASA score P 2 - A patient with mild systemic disease as per Morgan Martin MD. 10:00:51 Post procedure rhythm: sinus rhythm 10:00:53 Estimated blood loss: 10 ml 10:00:55 Post procedure instruction explained to patient.Patient verbalizes understanding. 10:00:55 Patient needs reinforcement of post procedure teaching. 10:01:20 Procedure type changed to Cath procedure, Diagnostic procedure, Sedation Charges, Moderate Sedation up to 30 minutes, PCI procedure, Coronary Stent, Coronary Stent Initial x2, Coronary Stent Additional, Hemochron ACT Test 10:02:26 Procedure and supply charges have been captured, reviewed, submitted and are correct. 10:02:29 Procedure Complication : No complications 10:02:30 Vital chart was stopped 10:02:32 [facility] Findings: MVD- PCI performed (see procedure note) 10:02:34 Operative report dictated upon procedure completion. 10:02:34 See physician's report for complete and final results. 10:02:36 Report given to Pre/Post Procedure Room. 10:02:39 Patient transfered to Pre/Post Procedure Room with Bed. 10:02:41 Procedure ended. 10:02:41 Full Disclosure recording stopped 10:02:46 ACC-PCI Only Patient was given prescriptions, or instructed by Morgan Martin MD to start/continue the following medications upon discharge: Plavix 10:02:48 End room use (Document Last) 10:06:13 End room use (Document Last) 10:06:30 End room use (Document Last) Intervention Summary Intervention Notes Time ActionType Lesion and Equipment Used Action# Pressure Duration Attributes 9:42:34 Place stent Mid CX MARICHUY RX 3.0 x 1 13 00:00 15 stent ([id number]) 9:42:52 Reinflate Mid CX MARICHUY RX 3.0 x 2 13 00:00 stent 15 stent balloon ([id number]) 9:44:57 Place stent Mid CX MARICHUY RX 3.0 x 3 15 00:00 30 stent ([id number]) 9:47:41 Discard MARICHUY RX 2.5 x Stent 22 stent ([id number]) 9:49:03 Inflate 1st Diag EUPHORA 2.5 x 1 13 00:00 balloon 20 Balloon ([id number]) 9:50:04 Reinflate 1st Diag EUPHORA 2.5 x 2 13 00:00 balloon 20 Balloon ([id number]) 9:51:19 Place stent 1st Diag MARICHUY RX 2.5 x 3 13 00:00 22 stent ([id number]) 9:54:12 Discard MARICHUY RX 3.0 x Stent 15 stent ([id number]) 9:55:16 Reinflate Mid LAD1 EUPHORA 2.5 x 1 17 00:00 balloon 20 Balloon ([id number]) 9:56:43 Place stent Mid LAD MARICHUY RX 3.0 x 1 15 00:00 15 stent ([id number]) Device Usage Item Name Manufacture Quantity Catalog Number [facility] Part Current M inimal Lot# / Charge Number Stock Stock Serial# Code ACIST Syringe Acist 1 02349 428914 163632 769528 2 0 (53552) Medical Systems Inc ACIST Hand Acist 1 42078 837758 444718 444550 5 Control Medical (39766) Systems Inc ACIST Manifold Acist 1 81219 263906 020228 211902 5 (18020) Medical Systems Inc Medline Cath Medline 1 [id number] 053522 01681 474568 5 Pack ([id number]) Bag Decanter Microtek 1 2001S 507277 78954 282634 5 () Medical Inc. EMERALD Guide Cardinal 1 502-455 441397 219585 005309 5 Wire (502-455) Health SHEATH 6FR Terumo 1 UCI705 396193 565492 916003 4 0 Adams (AOP242) CHOICE PT [place] 2 [id number] 302951 910732 166031 5 Extra Support Scientific 182cm wire ([id number]) INFLATOR Merit Merit 1 HW8312 329214 093481 979469 1 5 21viaNet (KI1333) GUIDE 6FR Cardinal 1 68723738 979219 393806 892069 3 XBLAD 4.0 Health catheter (21009133) MARICHUY RX 3.0 x Medtronic 2 [id number] 368994 3139155 363108 5 [id number] 15 stent [id number] ([id number]) MARICHUY RX 3.0 x Medtronic 1 [id number] 817851 6888143 167519 5 [id number] 30 stent ([id number]) MARICHUY RX 2.5 x Medtronic 1 [id number] 594134 6970886 666985 5 [id number] 22 stent ([id number]) EUPHORA 2.5 x Medtronic 1 [id number] 580559 390952 816964 5 [id number] 20 Balloon ([id number]) EXOSEAL 6Fr Cardinal 1 EX600 175587 160499 660803 1 0 (EX600) Health Signature Audit [place] Stage Time Signature Unsigned Intra-Procedure 07/29/2019 Marion Aldridge 10:06:13 AM RT(R) Intra-Procedure 07/29/2019 Suman 10:06:30 AM Renny HAMMER Intra-Procedure 07/29/2019 Morgan Martin 10:06:45 AM [address] [place] [address]
[~2019-07-29 07:28] MED LIST: BAYER CHEWABLE81 MG PO; JANUVIA100 MG PO; LISINOPRIL20 MG PO; OMEPRAZOLE20 M1 PO; PLAVIX75 MG PO; ZOCOR20 MG PO
[2019-07-29 07:55] VITALS: BP 139/91; Ht 185.4 cm; Wt 77.3 kg
[2019-07-29 08:01] LABS: BASOPHILS 0.3 % (0-2); EOSINOPHILS 2.4 % (0-7); HEMOGLOBIN 15.9 g/dL (13.5-17.5); IMMATURE GRANULOCYTES 0.2 % (0-5); LYMPHOCYTES 15.1 % (15-50); MCH 31.9 pg (26.0-34.0); MCHC 33.8 g/dL (31.0-37.0); MCV 94.4 fL (80.0-100.0); MEAN PLATELET VOLUME 10.3 fL (7.4-10.4); MONOCYTES 10.2 % (2-11); NEUTROPHILS 71.8 % (40-80); PLATELET COUNT 181 10x3/uL (130-400); RBC 4.98 10x6/uL (4.20-6.10); RDW 14.1 % (11.5-14.5); WBC 5.9 10x3/uL (4.8-10.8)
[2019-07-29 08:11] LABS: CALC OSMOLALITY 286 mosm/kg (275-300); CALCIUM 9.2 mg/dL (8.5-10.1); CARBON DIOXIDE 27.6 mmol/L (21.0-32.0); CHLORIDE - SERUM 106 mmol/L (98-107); CREATININE - SERUM 0.9 mg/dL (0.6-1.3); GLUCOSE 158 mg/dL (74-106); POTASSIUM - SERUM 4.3 mmol/L (3.5-5.1); SODIUM 142 mmol/L (136-145); UREA NITROGEN 15 mg/dL (7-18); eGFR NON AFRICAN AMERICAN 89 mL/min (90-120)
--- NOTE | 2019-07-29 10:12 | NUR ---
PT ARRIVED BY STRETCHER. PLACED ON MONITORS. ASSESSMENT COMPLETED. VSS. FAMILY AT BEDSIDE AT THIS TIME.
--- NOTE | 2019-07-29 10:26 | NUR ---
PT RESTING COMFORTABLY IN SUPINE POSITION. RIGHT GROIN DRESSING C/D/I. NO S/S OF HEMATOMA NOTED. CALL LIGHT WITHIN REACH. VSS. DENIES NAUSEA/PAIN. RIGHT PEDAL PULSE PALPABLE.
--- NOTE | 2019-07-29 11:00 | NUR ---
RIGHT GROIN DRESSING C/D/I. NO S/S OF HEMATOMA NOTED. CALL LIGHT WITHIN REACH. FAMILY AT BEDSIDE.
--- NOTE | 2019-07-29 11:33 | NUR ---
PT RESTING COMFORTABLY. VSS. RIGHT GROIN DRESSING C/D/I. NO S/S OF HEMATOMA NOTED. CALL LIGHT WITHIN REACH.
--- NOTE | 2019-07-29 12:00 | NUR ---
RIGHT GROIN DRESSING C/D/I. NO S/S OF HEMATOMA NOTED. CALL LIGHT WITHIN REACH. FAMILY AT BEDSIDE. PT RESTING COMFORTABLY. TOLERATING SIPS OF WATER. DENIES NAUSEA/PAIN AT THIS TIME.
--- NOTE | 2019-07-29 13:00 | NUR ---
RIGHT GROIN DRESSING C/D/I. NO S/S OF HEMATOMA NOTED. CALL LIGHT WITHIN REACH. VSS. HEAD OF BED INC TO 30 DEGREES. TOLERATED WELL. SET UP WITH SANDWICH TRAY AND DRINK. DENIES NAUSEA/PAIN. FAMILY AT BEDSIDE.
--- NOTE | 2019-07-29 13:30 | NUR ---
PIV D/C'D WITH CATH TIP INTACT. TOLERATED WELL. PT INSTRUCTED TO GET UP AND DRESSED. RIGHT GROIN DRESSING C/D/I. NO S/S OF HEMATOMA NOTED. FAMILY AT BEDSIDE TO ASSIST.
--- NOTE | 2019-07-29 13:45 | NUR ---
PT AMBULATED TO RESTROOM. VOIDED WITHOUT DIFFICULTY. BACK TO ROOM. DISCUSSED DISCHARGE INSTRUCTIONS WITH PT AND PT'S FAMILY. THEY VOICED UNDERSTANDING.
--- NOTE | 2019-07-29 13:50 | NUR ---
PT TAKEN OUT TO VEHICLE BY WHEELCHAIR. NO S/S OF DISTRESS NOTED. ALL BELONGINGS AND PAPERWORK IN HAND.
--- NOTE | 2019-08-02 11:24 | HP ---
PATIENT: HARDY WATKINS MEDICAL RECORD: [id number] ACCOUNT: [id number] LOCATION:[place] : 52 ADMISSION DATE: 07/29/19 PCP: GERALDINE BEATTY MD HISTORY AND PHYSICAL EXAMINATION ADMITTING DIAGNOSES: 1. Unstable angina. 2. Coronary artery disease. 3. Recent percutaneous transluminal coronary angioplasty stent of the RCA with concomitant disease of circumflex and LAD. HISTORY OF PRESENT ILLNESS: Mr. Watkins presented with anginal symptomatology. Last week, he was found to have severe 3-vessel coronary artery disease, underwent successful PTCA stent of the RCA. He is now brought back for staged PCTA stent of LAD and circumflex. PHYSICAL EXAMINATION: CONSTITUTIONAL/GENERAL APPEARANCE: Well nourished, well developed, appears stated age. EYES: Lids and conjunctivae noninjected. No discharge. No pallor. ENT: Lips within normal limit. No cyanosis. No pallor. NECK: Carotid arteries, bilateral normal upstroke. No bruits. No thrills. No jugular venous pressure or distention. CERVICAL LYMPH NODES: Nontender. Nonenlarged. THYROID: Not enlarged. No nodules. CARDIOVASCULAR: Precordial exam, nondisplaced. No heaves or pericardial thrills. Rate and rhythm, regular. Heart sounds, normal S1, normal S2. No S3, no gallop, no rub. Systolic murmur, not heard. Diastolic murmur, not heard. RESPIRATORY: Respiratory effort, unlabored. Normal curvature. No thoracic deformity. No chest wall tenderness. Percussion, resonant. Auscultation, clear. No wheezes, no rales, no rhonchi. ABDOMEN: Soft, nondistended, nontender. No abdominal pain, no vomiting and normal appetite. MUSCULOSKELETAL: No joint tenderness, normal gait, normal tone. SKIN: Warm and dry. REVIEW OF SYSTEMS: The patient reports easy bruising but reports no swollen glands. The patient reports no fever, no night sweats, no significant weight gain, no significant weight loss. No significant exercise tolerance. The patient reports no dry eyes, no irritation, no vision change. Patient reports no difficulty hearing and no ear pain. Patient reports no frequent nose bleeds or nose and sinus problems. Patient reports on arm pain on exertion. No shortness of breath while lying down. No history of heart murmur. Patient reports no cough, no wheezing or coughing up blood. Patient reports no abdominal pain, no vomiting. Normal appetite. No diarrhea and not vomiting blood. No nausea and no constipation. Patient reports no incontinence. No difficulty urinating. No hematuria. No increased frequency. Patient reports no muscle aches. No weakness, no arthralgias, no back pain. No swelling of the extremities. Patient reports no abnormal mole, no jaundice, no rashes. Reports no loss of consciousness. No weakness and no numbness. No seizures, dizziness, or headaches. The patient reports no depression, no sleep disturbance, feeling safe in a relationship and no alcohol abuse. Patient reports on fatigue. Reports no runny nose or sinus pressure. No itching, no hives, and no frequent sneezing. HISTORY AND PHYSICAL [id number] HARDY WATKINS OVERALL IMPRESSION: Anginal symptomatology with known disease of the LAD and circumflex. We will proceed with percutaneous transluminal coronary angioplasty stent of the LAD and circumflex. TRANSINT:[id number] Voice Confirmation ID: [id number] DOCUMENT ID: [id number] WILMA NIETO MD at 1124 CC: [id number] DICTATION DATE: 07/29/19 1000 INSEAMER: 07/29/19 1104 DEP CLI 07/29/19 [id number] [place] [address]
--- NOTE | 2019-08-02 11:24 | OP ---
PATIENT NAME: HARDY CAMACHO MEDICAL RECORD: [id number] :52 LOCATION:D.CAT ADMISSION DATE: SURGEON: WILMA NIETO MD DATE OF OPERATION: 07/29/2019 PROCEDURES: 1. PTCA stent left circumflex. 2. PTCA stent LAD. 3. PTCA stent LAD diagonal. 4. Selective coronary angiography. INDICATION: Unstable angina and coronary artery disease. PROCEDURE IN DETAIL: After informed consent was obtained and after detailed description of risks, benefits as well as alternative therapies, the patient elected to proceed with angiogram and angioplasty. The right femoral area was prepped and draped in normal sterile fashion. Right femoral artery was cannulated via modified Seldinger technique with placement of 6-[place] sheath. All catheters exchanged through this sheath. FINDINGS: The left circumflex has 90% stenosis times 2, this was addressed with a 3.0 x 30 and 3.0 x 15 both Kiel stents. Result was 0% residual stenosis. Left anterior descending diagonal has a 95% stenosis. This was addressed with a 2.5 x 22 mm [place] stent. The LAD has a 95% stenosis. This was addressed with a 3.0 x 15 mm [place] stent. Result was 0% residual stenosis. OVERALL IMPRESSION: Successful PTCA stent of the LAD and circumflex going from 90% to 95% initial stenosis to 0% residual. TRANSINT:[id number] Voice Confirmation ID: [id number] DOCUMENT ID: [id number] WILMA NIETO MD at 1124 CC: [id number] DICTATION DATE: 07/29/19 1002 TREE THINNER: 07/29/19 1209 DEP CLI 07/29/19 [id number] [place] [id number]
== END 2019-07-29 13:50 | disposition home or self-care (01) ==
LOC: D.CATH 07:28
PROVIDERS: ATTEND Internal Medicine Interventional Cardiology
DX: I25.110 Atherosclerotic heart disease of native coronary artery with unstable angina pectoris (principal); I10 Essential (primary) hypertension; E78.5 Hyperlipidemia, unspecified; R06.00 Dyspnea, unspecified
CPT/HCPCS: C9600 ×2; C9601